=== PATIENT | female | born 1980 | race American Indian/Alaskan Native ===

== ENCOUNTER → 2024-09-03 11:06 | Outpatient (REF) | payer OTHER, SELFPAY ==
[2024-09-03 13:00] LABS: Hepatitis B Surface Antibody Positive
[2024-09-04 14:37] LABS: Mumps Virus IgG Positive; Rubeola (Measles) IgG Positive; Varicella Zoster IgG (VZV) Negative
[2024-09-04 19:47] LABS: Rubella Positive
[2024-09-05 09:22] LABS: Quantiferon Mitogen minus NIL 9.95 IU/mL; Quantiferon NIL 0.05 IU/mL; Quantiferon Plus TB1 minus NIL 0.04 IU/mL (<=0.34); Quantiferon Plus TB2 minus NIL 0.05 IU/mL (<=0.34); Quantiferon TB Gold Plus Negative (Negative)
== END ==
LOC: OHS 11:06
PROVIDERS: ATTENDING PHYSICIAN Nurse Practitioner Family
DX: Z23 Encounter for immunization (principal)
CPT/HCPCS: 36415; 86480; 86706; 86735; 86762; 86765; 86787